=== PATIENT | female | born 1955 | race Caucasian/White ===

== ENCOUNTER 2016-08-17 13:02 | Emergency (ER) | payer OTHER ==
[~2016-08-17] VITALS: Ht 160 cm; Wt 77.1 kg
[~2016-08-17 13:02] MED LIST: DILAUDID2 MG PO; FIORICET 325 MG1 TAB PO; HYCET 325 MG/1473 ML PO; OMEPRAZOLE D/R20 MG PO; PREMARIN 0.60.625 MG PO; SERTRALINE HYD100 MG PO; SUBOXONE 8 MG-21 FIL PO
[2016-08-17 13:09] VITALS: BP 112/75
--- NOTE | 2016-08-17 13:15 | ED UPPER/LOWER EXTREMITY COMPL ---
History of Present Illness General Chief Complaint: Upper Extremity Problem Stated Complaint: NECK SURG. ARM PAIN Source: patient, old records Exam Limitations: no limitations Vital Signs & Intake/Output Vital Signs & Intake/Output Vital Signs Date Time Temp Pulse Resp B/P Pulse O2 O2 Flow FiO2 Ox Delivery Rate 08/17 1309 97.8 82 16 112/75 95 Room Air Allergies Coded Allergies: NO KNOWN ALLERGIES (08/17/16) Reconcile Medications Acetaminophen/Butalbital/Caf (Fioricet 325 MG-50 MG-40 MG) 1 TAB TAB 1-2 TAB PO Q6 PRN HEADACHE do not exceed 6 tablet(s) in 24 hours Amoxicillin 500 MG CAPSULE 2 CAP PO BID DENTAL INFECTION (Reported) Clonazepam 1 MG TABLET 1 TAB PO DAILY MENTAL HEALTH (Reported) Estrogenic Subst Conj (Premarin) 0.625 MG TABLET 1 TAB PO DAILY HYSTERECTOMY (Reported) Hydromorphone HCl 4 MG TABLET 1-2 TAB PO Q4P PRN SURGICAL PAIN (Reported) Methocarbamol 500 MG TABLET 1 TAB PO TID NECK PAIN (Reported) Pregabalin (Lyrica) 50 MG CAPSULE 1 CAP PO BID neurophaty SERTRALINE HCL (Sertraline Hydrochloride) 100 MG TABLET 1 TAB PO DAILY DEPRESSION (Reported) Triage Note: PT TO ED C/O LEFT ARM PAIN S/P ACDF ON THURSDAY. PT CALLED SURGEON'S OFFICE, WAS TOLD IT WAS NERVE PAIN. WAS TAKING LYRICA IN HOSPITAL WITH MINOR RELIEF BUT STOPPED WHEN DISCHARGED. Triage Nurses Notes Reviewed? yes Onset: Abrupt Duration: day(s): (5), constant Timing: recent history Severity: moderate Severity Numbers: 7 Pain/Injury Location: Left: Arm. Method of Injury: unknown Modifying Factors: Worsens With: movement. Associated Symptoms: none HPI: This is a 61-year-old female who presents to emergency room for evaluation status post anterior cervical discectomy and fusion which was performed on August 12 at [facility] by orthopedic physician Dr. Ruff. The patient states since she came out of her car ratio is had left bicep arm pain worse with movement described as sharp and aching nonradiating that she has had since being discharged on August 14. The patient states that she told her orthopedic doctor about these symptoms and was told that is most likely a nerve pain for which she was taking Lyrica in the hospital. She was sent home with Robaxin and Dilaudid which is helping with her neck pain however states it has not improved her arm pain. She is right-hand dominant. She denies any other arm pain, numbness tingling or weakness. She denies any swelling to the left arm no chest pain no shortness of breath. She denies any fevers chills or discharge from her wound. She called her orthopedic today and states she received a phone call back from a woman who stated that she could not write her prescriptions and she would have to wait until tomorrow. There is no injury trauma or fall. She denies any rashes redness or warmth to her arm. No palpitations dizziness or lightheadedness (SEDRICK ALMEIDA) Past History Travel History Traveled to [place] past 21 day No Medical History Any Pertinent Medical History? see below for history Neurological: ACD WITH FUSION EENT: NONE Cardiovascular: NONE Respiratory: NONE Gastrointestinal: NONE Hepatic: NONE Renal: NONE Musculoskeletal: ARTHRITIS Psychiatric: bipolar disease Endocrine: NONE TOWN MANAGER/Reproductive: HYSTERECTOMY History of MRSA: Yes History of VRE: No History of CDIFF: No Influenza Vaccine: 04/10/15 Surgical History Surgical History: cervical fusion 07/2016 Psychosocial History Who do you live with Spouse What is your primary language [place] Verdean Tobacco Use: Current Daily Use Daily Tobacco Use Amount/Type: => 5 Cigarettes daily ETOH Use: occasional use Illicit Drug Use: denies illicit drug use Family History Hx Contributory? No (SEDRICK ALMEIDA) Review of Systems Review of Systems Constitutional: Reports: see HPI. All Other Systems: Reviewed and Negative Comments Review of systems: See HPI, All other systems negative. Constitutional, no chills no fever, no malaise no weight loss HEENT: No visual changes no sore throat no congestion, no ear pain Cardiovascular: No chest pain , no palpitation Skin, no jaundice no rashes, no change in skin Respiratory: No dyspnea no cough no sputum GI: No nausea no vomiting, no diarrhea, : No dysuria Muscle skeletal: No joint pain, no joint swelling, no back pain, neck pain, Neurologic: No numbness no confusion, no headache Psych: No stress Heme/endocrine: No bruising no bleeding Immunology: No lymphadenopathy (SEDRICK ALMEIDA) Physical Exam Physical Exam General Appearance: well developed/nourished, no apparent distress, alert, awake Comments: Well-developed well-nourished person in no acute distress HEENT: Normal EENT exam; PERRL, EOMI, no nystagmus. HEAD is atraumatic. moist mucous membranes. Neck: Supple, incision is clean dry and intact there is no surrounding erythema or induration or fluctuance, no lymphadenopathy, normal range of motion without pain or tenderness Back: Nontender, Full range of motion Cardiovascular: Regular rate and rhythms no murmurs Respiratory: Chest nontender.There were no bony deformities, no asymmetry. No respiratory distress. Patient speaking in full complete sentences. Breath sounds clear to auscultation bilaterally: NO W/R/R Abdomen: Soft, nontender nondistended, Normal bowel sounds. No rebound/guarding, Shoulder: Atraumatic/Stable. FROM . Elbow: Atraumatic/stable. FROM. No laxity Upper arm/Forearm: Tenderness to palpation over the left bicep there is no swelling there is no ecchymosis Atraumatic. Nontender. 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 Skin intact. FROM Pulses: Normal/equal radial pulses bilaterally. Brisk cap refill Lower Extremity: No edema, full range of motion of extremities, normal and equal pulses bilaterally, 5 out of 5 strength noted to bilateral upper and lower extremities Neuro: Alert oriented x3, motor sensory normal. There were no obvious focal neurologic abnormalities. Skin: No appreciable rash on exposed skin, skin is warm and dry. Psych: Mood and affect is normal, memory and judgment is normal. (TERRY MEJIA,SEDRICK) Progress Differential Diagnosis: arterial insufficiency, cellulitis, compartment syndrome , contusion, DVT, sprain, tendon injury, CERVICAL RADICULOPATHY Plan of Care: Orders Procedure Date/time Status US-UNILATERAL VENOUS DOPPLER 08/17 8224 Active pt denies cervical pain, discharge from wound, us ordered, case d/w dr frey who agrees with plan 08/17/2016 2:50:21 PM on repeat evaluation the patient reports her pain has completely resolved after she was administered morphine 4 mg IM. i Discussed with the patient and her family friends her ultrasound results. I discussed with him need for close follow-up with her spine physician tomorrow she states she is scheduled to see them on August 25 are advise she give him a call tomorrow to be seen this week. Prescription for Lyrica was provided which she was taking in the hospital answer all the questions they feel comfortable this plan (SEDRICK ALMEIDA) Diagnostic Imaging: Viewed by Me: Ultrasound. Discussed w/RAD: Ultrasound. Radiology Impression: PATIENT: OLAF BILLS PRESENT AGE: 61 PATIENT ACCOUNT NO: [id number] : 59 LOCATION: [facility] ORDERING PHYSICIAN: SEDRICK MEJIA SERVICE DATE: 08/17/16 EXAM TYPE: US - US- UNILATERAL VENOUS DOPPLER EXAMINATION: US TRIPLEX UPPER EXTREMITY, LEFT CLINICAL INFORMATION: Left arm pain. Status post neck surgery this week. Suspected DVT. COMPARISON: None TECHNIQUE: Color-flow triplex imaging with spectral analysis and compression Doppler were performed on the left upper extremity. FINDINGS: The left internal jugular, subclavian, axillary, brachial, basilic, cephalic veins are widely patent. IMPRESSION: No sonographic evidence of venous thrombosis is noted at left upper extremity. DICTATED BY: ELLY WOODARD MD DATE/TIME DICTATED:08/17/161434 UPHOLSTERY CUTTER:BRADLEY DATE/TIME TRANSCRIBED:08/17/161434 CONFIDENTIAL, DO NOT COPY WITHOUT APPROPRIATE AUTHORIZATION. <Electronically signed in Other Vendor System> SIGNED BY: ELLY WOODARD MD 08/17/161438 (SEDRICK ALMEIDA) Departure Departure Time of Disposition: 1448 Disposition: HOME OR SELF CARE Condition: Stable Clinical Impression Primary Impression: Cervical radiculopathy Referrals: SOREN GILES MD (PCP/Family) Additional Instructions: follow up with your spine physician dr ruff tomorrow. continue taking your dilaudid for pain. Lyrica as directed this prescription was sent here pharmacy Departure Forms: Customer Survey General Discharge Information Prescriptions: Current Visit Scripts Pregabalin (Lyrica) 1 CAP PO BID #14 CAP (SEDRICK ALMEIDA) PA/GREY TENDER Co-Sign Statement Statement: ED Attending supervision documentation- [] I saw and evaluated the patient. I have also reviewed all the pertinent lab results and diagnostic results. I agree with the findings and the plan of care as documented in the PA's/GREY TENDER's documentation. [X] I have reviewed the ED Record and agree with the PA's/GREY TENDER's documentation. [] Additions or exceptions (if any) to the PAs/GREY TENDER's note and plan are summarized below: [] (KATALINA CASTILLO,YASH Phillips)
[2016-08-17] MEDS ORDERED: AMOXICILLIN500 M2 PO (13:42)
[2016-08-17] MEDS ORDERED: METHOCARBAMOL500 M1 PO (13:42)
[2016-08-17] MEDS ORDERED: CLONAZEPAM1 M2 PO (13:42)
[2016-08-17] MEDS ORDERED: HYDROMORPHONE HC4 M1 PO (13:42)
--- NOTE | 2016-08-17 14:39 | ULTRASOUND REPORT ---
EXAMINATION: US TRIPLEX UPPER EXTREMITY, LEFT CLINICAL INFORMATION: Left arm pain. Status post neck surgery this week. Suspected DVT. COMPARISON: None TECHNIQUE: Color-flow triplex imaging with spectral analysis and compression Doppler were performed on the left upper extremity. FINDINGS: The left internal jugular, subclavian, axillary, brachial, basilic, cephalic veins are widely patent. IMPRESSION: No sonographic evidence of venous thrombosis is noted at left upper extremity.
[2016-08-17] MEDS ORDERED: LYRICA50 M1 PO (14:51)
== END 2016-08-17 15:02 ==
LOC: ERH 13:02
DX: M54.12 Radiculopathy, cervical region (principal)
CPT/HCPCS: 96372